=== PATIENT | female | born 1970 | race Caucasian/White ===

== ENCOUNTER 2017-11-16 16:15 | Inpatient (IN) ==
[2017-11-18 05:30] LABS: Basophils # 0.1 K/mcL (0.0-0.2); Basophils % 0.7 %; Eosinophils # 0.1 K/mcL (0.0-0.6); Eosinophils % 1.7 %; Hematocrit 40.6 % (35.3-44.9); Hemoglobin 13.8 g/dL (11.5-15.4); Immature Granulocytes % 0.1 % (0-4); Lymphocytes # 2.4 K/mcL (0.6-4.6); Lymphocytes % 28.9 %; Mean Corpuscular Hemoglobin 29.1 pg (28.0-33.3); Mean Corpuscular Volume 85.7 fL (83.0-100.0); Mean Platelet Volume 11.2 fL (9.4-12.4); Monocytes # 0.5 K/mcL (0.0-1.3); Monocytes % 6.3 %; Neutrophils # 5.1 K/mcL (1.6-8.9); Platelet Count 254 K/mcL (140-400); Red Blood Count 4.74 M/mcL (3.82-4.97); Red Cell Distribution Width 12.2 % (11.5-14.5); Segmented Neutrophils % 62.3 %
[2017-11-18 05:31] LABS: Prothrombin Time 11.8 Seconds (9.4-12.1)
[2017-11-18 05:34] LABS: Activated Partial Thrombo Time 32.4 Seconds (26.0-36.0)
[2017-11-18 05:42] LABS: BUN/Creatinine Ratio 21 (6-26); Blood Urea Nitrogen 19 mg/dL (6-20); Calcium 9.4 mg/dL (8.6-10.3); Carbon Dioxide 25 mEq/L (23-29); Chloride 103 mEq/L (98-107); Glucose 115 mg/dL (70-105); Osmolality,Calculated 283 (280-300); Potassium 3.9 mEq/L (3.5-5.1); Sodium 135 mEq/L (136-145); eGFR For Non-African Americans > 60 (> 60)
[2017-11-18] MEDS: *HR* Enoxaparin 40 MG/0.4 ML SYRINGE SQ SCH (05:46)
[2017-11-18] MEDS: Aspirin 325 MG TABLET PO SCH (08:16)
--- NOTE | 2017-11-18 14:24 | Internal Med History&Physical ---
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 - discharged from [facility] on 11/17/17 to acute rehabilitation - residual right sided wkness reported but examination showed adequate strength - PT/OT/ST to evaluate pt and set goals to assess ADL/and improve them as they come - Pt on disability for bipolar and right knee; reported per pt - counseled against smoking given history of >20years; pt reports that she doesn 't have any smoking urges - Continue ASA and lipitor as well - PRN stool softner okay to continue - ?limitation would be her mood, and currently appear to be stable - no pain reported - Pt appear to be a poor compliant with medical follow up and her medications - hasn't been on her psych meds since being in hospital; reproting that family will bring them - called pharmacy and they reported that she is on Trazadone, wellbutrin and lamotrigine Qualifiers: CVA mechanism: embolism Precerebral and cerebral artery: other precerebral artery Qualified Code(s): I63.19 - Cerebral infarction due to embolism of other precerebral artery (2) Right sided weakness Current visit: No Status: Acute (3) Numbness on right side Current visit: No Status: Acute (4) Facial droop Current visit: No Status: Acute (5) Bipolar depression Current visit: Yes Status: Acute - poor compliance with meds; had multiple psych admissions in the past for SI w/ o attempt - currently stable mood; no halluciantions nor paranoia as well - restarting home psych medications: wellbutrin 100mg BID/ trazadone at 50mg PRN for insomnia - we will investigate when she last took lamictal before we start at half the dose for couple of days before she goes back to 150BID (6) Tobacco abuse Current visit: Yes Status: Acute - pt last cig was ?11/13 - no tobacco replacement therapy at this time - pt was counselled today - family and friends might still offer her as she was noticed to go outside - no limitation on going outside was imposed on her given hs of mood disorder of depression and bipolar (7) Urinary incontinence Current visit: Yes Status: Acute - ditropan was continued, will continue to monitor for constipation - stool softners PRN continued Qualifiers: Urinary Incontinence type: urge incontinence Qualified Code(s): N39.41 - Urge incontinence (8) Insomnia Current visit: Yes Status: Acute - trazadone 50mg PRN for insomnia placed Qualifiers: Insomnia type: other insomnia Qualified Code(s): G47.09 - Other insomnia (9) GERD (gastroesophageal reflux disease) Current visit: Yes Status: Acute - omeprazole at 20mg was given to pt - will continue to monitor Qualifiers: Esophagitis presence: esophagitis presence not specified Qualified Code(s) : K21.9 - Gastro-esophageal reflux disease without esophagitis Internal Medicine - H&P: HPI Chief complaint: Left CVA History of present illness: Ms. Figueroa is a 47 year old female with pmh of Bipolar depression with prior psych admission for SI w/o attempt per pt, 20 pack history of smoking, ?urinary urgency w/ incontinence on ditropan, who incurred left putamen infarct, posterior potamen per MRI of the brain w/o hemorrhage on 11/14. No reports of tPA due to being evaluated outside the window. Currently suffering from right sided hemiplagia per records and that what she endorsed to me today. Today she deined any new symptoms and feels fatigue s/p PT. She reports that she is tobacco free since her CVA on 11/14. She doesn't remember her medications for her bipolar. Doesn't see psych, and f/u with Dr. Martha Rodriguez that fills her psych meds. Her bipolar has been stable, and last psych admission has been years ago, she doesn't remember when but was for SI w/o attempt for at least 3 days duration. She reported that she is on three psych meds, that doesn't appear to be taken for the past days since admission. It was also noted that she had a diagnosis of psoriasis but doesn't appear to be taking her Humira wkly injection. Overall, denied any CP/SOB/ GI or issues. Reported that mood is stable w/o any hallucinations nor paranoia reported. She reported intact appetite and sleep at this time. She is expressing desire to be home. Past Med Surg Social Fam HX - Past Medical History Source: patient, old records reviewed (Psoriasis, Uriary incontinence, hx of tobacco abuse of 20 pack years and bipolar depression) Medical history: CVA, GERD, hyperlipidemia, other Additional medical history: Ovarian cyst Psychiatric history: bipolar, depression - Past Surgical History Surgical History: cholecystectomy Additional surgical history: carpal tunnel sx, Right knee replacement - Social History Smoking Status: Current every day smoker (last tobacco use 11/13) Smokeless Tobacco Status: No Alcohol use: none Drug use: none Internal Medicine - H&P: Meds Omeprazole [PriLOSEC] 20 mg PO BIDAC 11/17/17 [History] Oxybutynin [Ditropan] 10 mg PO DAILY 11/17/17 [History] Adalimumab [Humira] 40 mg SQ Q7D 11/18/17 [History] BuPROPion [Wellbutrin] 100 mg PO BID 11/18/17 [History] lamoTRIgine [Lamotrigine] 150 mg PO BID 11/18/17 [History] traZODone [TraZODone] 50 mg PO HS 11/18/17 [History] 3 Allergy/AdvReac Type Severity Reaction Status Date / Time tetrahydrozoline AdvReac Swelling Verified 11/02/17 14:02 [From [facility]] of the [facility] Systems PM: A 10-system review of systems was performed and is negative for pertinent findings except as documented above in the HPI. - Constitutional Vitals: Temp Pulse Resp BP Pulse Ox 97.8 F 73 16 107/74 98 11/18/17 11:32 11/18/17 11:32 11/18/17 11:32 11/18/17 11:32 11/18/17 11:32 - Head Head exam: Present: atraumatic, normocephalic - Eye Eye exam: Present: PERRL, conjuntiva pink, sclera anicteric Pupils: Present: PERRL Additional comments: Right lazy eye - Neck Neck exam general surgery: Present: supple, trachea midline. Absent: lymphadenopathy - Respiratory Respiratory exam: Present: CTAB. Absent: accessory muscle use, rales, rhonchi, wheezes - Cardiovascular Cardiovascular exam: Present: RRR, +S1, +S2. Absent: diastolic murmur, gallop, rubs, systolic murmur - GI/Abdominal GI/Abdominal exam: Present: normal bowel sounds, soft, no peritoneal signs. Absent: distended, tenderness - Extremities Exam Extremities exam: Present: warm, radial pulses palpable and symmetrical. Absent : calf tenderness, cyanotic, pedal edema Additional comments: Upper extremity strength at 5/5 Lower extremity srength at 5/5 Gait normal with walker able to stand up - Neurological Exam Neurological exam: Present: CN II-XII intact, oriented X3, no focal deficits. Absent: pronater drift, facial droop, speech deficit - Psychiatric Psychiatric exam: Present: normal affect, normal mood. Absent: agitated, anxious, depressed, flat affect, manic, suicidal ideation - Skin Skin exam: Present: dry, intact Internal Med - H&P Results - Labs CBC & Chem 7: 11/18/17 05:15 11/18/17 05:15 Labs: Short CBC 11/18/17 Range/Units 05:15 WBC 8.3 (4.3-11.1) K/mcL Hgb 13.8 (11.5-15.4) g/dL Hct 40.6 (35.3-44.9) % Plt Count 254 (140-400) K/mcL Neutrophils # 5.1 (1.6-8.9) K/mcL BMP 11/18/17 05:15 Sodium 135 L Potassium 3.9 Chloride 103 Carbon Dioxide 25 BUN 19 Creatinine 0.91 Glucose 115 H Calcium 9.4
[2017-11-18] MEDS: traZODone 50 MG TABLET PO PRN (21:21)
[2017-11-19] MEDS: *HR* Enoxaparin 40 MG/0.4 ML SYRINGE SQ SCH (05:46)
[2017-11-19] MEDS: Aspirin 325 MG TABLET PO SCH (08:14)
--- NOTE | 2017-11-19 12:03 | Internal Med Progress Note ---
Date of Encounter: 11/19/17 Time of Encounter: 12:00 - Assessment and plan (1) CVA (cerebral vascular accident) Current Visit: No Status: Acute Assessment and plan: - history of stroke on the left posterior Putamen - discharged from [facility] on 11/17/17 to acute rehabilitation in [place] - residual right sided wkness reported but examination showed adequate strength - PT/OT/ST to evaluate pt and set goals to assess ADL/and improve them as they come - Pt on disability for bipolar and right knee; reported per pt - counseled against smoking given history of >20years; pt reports that she doesn 't have any smoking urges - Continue ASA and lipitor as well - Continue PRN stool softner - ?limitation would be her mood, and currently appear to be stable - no pain reported still - Pt appear to be a poor compliant with medical follow up and her medications - hasn't been on her psych meds since being in the [facility]; We investigated by phone and she brought them as well - called pharmacy and they reported that she is on Trazadone, wellbutrin and lamotrigine - She doesn't report being on lamotrigine; we only started trazadone and wellbutrin Qualifiers: CVA mechanism: embolism Precerebral and cerebral artery: other precerebral artery Qualified Code(s): I63.19 - Cerebral infarction due to embolism of other precerebral artery (2) Right sided weakness Current Visit: No Status: Acute (3) Numbness on right side Current Visit: No Status: Acute (4) Facial droop Current Visit: No Status: Acute (5) Bipolar depression Current Visit: Yes Status: Acute Assessment and plan: - poor compliance with meds; had multiple psych admissions in the past for SI w/ o attempt - currently stable mood; no halluciantions nor paranoia - continue home psych medications: wellbutrin 100mg BID/ trazadone at 50mg PRN for insomnia - Doesn't appear been on lamictal at this time; we will defer to her psych/FM physician (6) Tobacco abuse Current Visit: Yes Status: Acute Assessment and plan: - pt last cig was ?11/13 - no nicotine replacement therapy at this time - family and friends might still offer her as she was noticed to go outside - no limitation on going outside was imposed on her given hx of mood disorder bipolar depression (7) Urinary incontinence Current Visit: Yes Status: Acute Assessment and plan: -Continue ditropan -continue to monitor for constipation as a side effect Qualifiers: Urinary Incontinence type: urge incontinence Qualified Code(s): N39.41 - Urge incontinence (8) Insomnia Current Visit: Yes Status: Acute Assessment and plan: -Continue trazadone PRN as above Qualifiers: Insomnia type: other insomnia Qualified Code(s): G47.09 - Other insomnia (9) GERD (gastroesophageal reflux disease) Current Visit: Yes Status: Acute Assessment and plan: -continue Omeprazole 20mg Qualifiers: Esophagitis presence: esophagitis presence not specified Qualified Code(s) : K21.9 - Gastro-esophageal reflux disease without esophagitis - Time Spent With Patient less than 15 minutes - Subjective Interval history: pt seen in the dinning area eating lunch, expressed desire to home Denied: insomnia, CP/SOB, Gi or as well stable mood - Constitutional Vitals: Temp Pulse Resp BP Pulse Ox 98.1 F 82 16 119/75 95 11/19/17 07:55 11/19/17 07:55 11/19/17 07:55 11/19/17 07:55 11/19/17 07:55 - Head Head exam: Present: atraumatic, normocephalic - Eye Eye exam: Present: PERRL, conjuntiva pink, sclera anicteric Pupils: Present: PERRL - Neck Neck exam general surgery: Present: supple, trachea midline. Absent: lymphadenopathy - Respiratory Respiratory exam: Present: CTAB. Absent: accessory muscle use, rales, rhonchi, wheezes - Cardiovascular Cardiovascular exam: Present: RRR, +S1, +S2. Absent: diastolic murmur, gallop, rubs, systolic murmur - GI/Abdominal GI/Abdominal exam: Present: normal bowel sounds, soft, no peritoneal signs. Absent: distended, tenderness - Extremities Exam Extremities exam: Present: warm, radial pulses palpable and symmetrical. Absent : calf tenderness, cyanotic, pedal edema - Neurological Exam Neurological exam: Present: CN II-XII intact, oriented X3, no focal deficits. Absent: pronater drift, facial droop, speech deficit - Skin Skin exam: Present: dry, intact Internal Medicine: Result - Labs CBC & Chem 7: 11/18/17 05:15 11/18/17 05:15 - ABG Interpretation ABG results: PT/INR, D-dimer PT 11.8 Seconds (9.4-12.1) 11/18/17 05:15 Consult Discharge Plan - Plan Referrals: Martha He, PHARMACY SALES REPRESENTATIVE [Primary Care Provider] -
[2017-11-19] MEDS: traZODone 50 MG TABLET PO PRN (21:40)
[2017-11-20] MEDS: *HR* Enoxaparin 40 MG/0.4 ML SYRINGE SQ SCH (05:46)
[2017-11-20 05:52] LABS: Eosinophils % 1.7 %; Hematocrit 39.4 % (35.3-44.9); Hemoglobin 13.3 g/dL (11.5-15.4); Immature Granulocytes % 0.3 % (0-4); Lymphocytes # 2.3 K/mcL (0.6-4.6); Lymphocytes % 25.8 %; Mean Corpuscular HGB Conc 33.8 g/dL (31.6-35.5); Mean Platelet Volume 11.5 fL (9.4-12.4); Monocytes % 6.5 %; Neutrophils # 5.9 K/mcL (1.6-8.9); Platelet Count 232 K/mcL (140-400); Red Blood Count 4.58 M/mcL (3.82-4.97); Red Cell Distribution Width 12.3 % (11.5-14.5); Segmented Neutrophils % 64.7 %
[2017-11-20 05:53] LABS: Basophils # 0.1 K/mcL (0.0-0.2); Eosinophils # 0.2 K/mcL (0.0-0.6); Monocytes # 0.6 K/mcL (0.0-1.3)
[2017-11-20 05:57] LABS: INR 1.1; Prothrombin Time 12.1 Seconds (9.4-12.1)
[2017-11-20 06:00] LABS: Activated Partial Thrombo Time 30.9 Seconds (26.0-36.0)
[2017-11-20 06:11] LABS: BUN/Creatinine Ratio 20 (6-26); Blood Urea Nitrogen 19 mg/dL (6-20); Calcium 9.6 mg/dL (8.6-10.3); Carbon Dioxide 24 mEq/L (23-29); Chloride 105 mEq/L (98-107); Glucose 117 mg/dL (70-105); Osmolality,Calculated 283 (280-300); Sodium 135 mEq/L (136-145); eGFR For Non-African Americans > 60 (> 60)
[2017-11-20] MEDS: Aspirin 325 MG TABLET PO SCH (08:08)
--- NOTE | 2017-11-20 13:20 | Internal Med Progress Note ---
Date of Encounter: 11/20/17 Time of Encounter: 12:54 - Assessment and plan (1) CVA (cerebral vascular accident) Current Visit: Yes Status: Acute Assessment and plan: No acute neuro deficits noted on exam. Continued slight right hemiparesis. Poor balance and remains a fall risk. Progressing well with PT/OT. VS stable. Patient with wishes to be DC'd to home and attend outpatient PT/OT. Patent with history of poor compliance with medical f/u and at times her medications. Poor physical support at home with the patient remaining a fall risk. Patient informed that the plan is to have her stay at least one more week (or longer). Will continue on current meds. Most recent Lipid panel from [facility] shows LDL 120. 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 No behavior issues reported and currently interacting well with staff. Continue on home meds. (3) Urinary incontinence Current Visit: Yes Status: Acute Assessment and plan: No current reported issues. Continue on current meds. Qualifiers: Urinary Incontinence type: urge incontinence Qualified Code(s): N39.41 - Urge incontinence (4) GERD (gastroesophageal reflux disease) Current Visit: Yes Status: Chronic Assessment and plan: Denies any issues. Continue on current meds. Qualifiers: Esophagitis presence: esophagitis presence not specified Qualified Code(s) : K21.9 - Gastro-esophageal reflux disease without esophagitis - Time Spent With Patient less than 15 minutes - Subjective Interval history: Patient appears relaxed and denies any current discomforts or dyspnea. Patient denies any recent acute neurological changes. Feels that her strength has improved. Patient has been stating her wishes to be discharged to home and do therapy as outpatient. Concerns about her compliance with care and therapy were expressed. Also, concerns about her mother, whom she lives with, being able to physically assist were discussed. Mother has had a recent CABG. - Constitutional Vitals: Temp Pulse Resp BP Pulse Ox 97.9 F 106 16 111/72 97 11/20/17 07:48 11/20/17 07:48 11/20/17 07:48 11/20/17 07:48 11/20/17 07:48 General appearance: Present: A&O X 3, pleasant - Head Head exam: Present: atraumatic, normocephalic - Eye Eye exam: Present: PERRL, conjuntiva pink, sclera anicteric Pupils: Present: PERRL Additional comments: PERRLA. Dysconjugate - Neck Neck exam general surgery: Present: supple, trachea midline. Absent: lymphadenopathy - Respiratory Respiratory exam: Present: CTAB. Absent: accessory muscle use, rales, rhonchi, wheezes - Cardiovascular Cardiovascular exam: Present: RRR, +S1, +S2. Absent: diastolic murmur, gallop, rubs, systolic murmur - GI/Abdominal GI/Abdominal exam: Present: normal bowel sounds, soft, no peritoneal signs. Absent: distended, tenderness - Extremities Exam Extremities exam: Present: warm, radial pulses palpable and symmetrical. Absent : calf tenderness, cyanotic, pedal edema - Neurological Exam Neurological exam: Present: CN II-XII intact, oriented X3. Absent: pronater drift, facial droop, speech deficit Additional comments: dysconjugate with eyes. Slight right hemiparesis with RE 4/5 and LE 5/5 on ext/ flex for prox/distal. Noted slight drag of right foot. Poor balance. - Skin Skin exam: Present: dry, intact Internal Medicine: Result - Labs CBC & Chem 7: 11/20/17 05:40 11/20/17 05:40 Labs: Short CBC 11/20/17 Range/Units 05:40 WBC 9.0 (4.3-11.1) K/mcL Hgb 13.3 (11.5-15.4) g/dL Hct 39.4 (35.3-44.9) % Plt Count 232 (140-400) K/mcL Neutrophils # 5.9 (1.6-8.9) K/mcL BMP 11/20/17 05:40 Sodium 135 L Potassium 4.0 Chloride 105 Carbon Dioxide 24 BUN 19 Creatinine 0.95 Glucose 117 H Calcium 9.6 - ABG Interpretation ABG results: PT/INR, D-dimer PT 12.1 Seconds (9.4-12.1) 11/20/17 05:40 Consult Discharge Plan - Plan Referrals: Martha He CNP [Primary Care Provider] -
--- NOTE | 2017-11-20 19:33 | Physcial Medicine-Consult Note ---
Date of Encounter: 11/20/17 Time of Encounter: 19:05 Physical Medicine - AP (1) CVA (cerebral vascular accident) Status: Acute Assessment and plan: Some of her RLE weakness is from previous right knee trauma and surgery. She has poor control of her right side, dysarthria, and dysphagia, which is amenable to therapy. She has some impulsiveness and poor pacing which makes her unsafe. Continue Rehab. PT, OT, & Speech. If she continues to catch her toe with walking, she may need AFO Need [facility] to look in her mouth and also consider stopping Lovenox. Code(s): I63.9 - Cerebral infarction, unspecified SNOMED Code(s): 081217946 Physical Medicine - HPI - Data of Consult Requesting Physician: Chris Rodarte MD Primary Care Provider: Martha He CNP - Consult Narrative History of present illness: Ms. Figueroa is a 47 year old female CC: Chris Rodarte MD [id number] admitted to Rehab with left CVA, right hemiparesis, dysarthria. She has good sensation and strength on the right side, but poor control. She admits to mild difficulty swallowing. Denies pain or bowel/bladder dysfunction. She has right exotropia since childhood and denies alteration of vision.Her goal for rehab is to become independent with walking and self care. Past Med Surg Social Fam HX - Past Medical History Medical history: CVA, GERD, hyperlipidemia, other Additional medical history: Ovarian cyst Psychiatric history: bipolar, depression - Past Surgical History Surgical History: cholecystectomy, knee replacement Additional surgical history: carpal tunnel sx, Right knee replacement - Social History Smoking Status: Current every day smoker (last tobacco use 11/13) Smokeless Tobacco Status: No Alcohol use: none Drug use: none Medications and Allergies Omeprazole [PriLOSEC] 20 mg PO BIDAC 11/17/17 [History] Oxybutynin [Ditropan] 10 mg PO DAILY 11/17/17 [History] Adalimumab [Humira] 40 mg SQ Q7D 11/18/17 [History] BuPROPion [Wellbutrin] 100 mg PO BID 11/18/17 [History] lamoTRIgine [Lamotrigine] 150 mg PO BID 11/18/17 [History] traZODone [TraZODone] 50 mg PO HS 11/18/17 [History] 3 Allergy/AdvReac Type Severity Reaction Status Date / Time tetrahydrozoline AdvReac Swelling Verified 11/02/17 14:02 [From [facility]] of the Eye All systems: reviewed and no additional remarkable complaints except as stated ( Right knee and leg weakness from previous trauma.) Physical Medicine - Exam - Constitutional Vitals: Temp Pulse Resp BP Pulse Ox 98.1 F 81 17 111/54 99 11/20/17 18:36 11/20/17 18:36 11/20/17 18:36 11/20/17 18:36 11/20/17 18:36 General appearance: average body habitus, cooperative, no acute distress - Head Head exam: Present: atraumatic, normocephalic - Eye Additional comments: Right exotropia - ENT ENT exam: Present: mucous membranes moist Additional comments: Right facial droop. Tongue protrudes to the right. Right side of tongue and right posterior oral mucosa is coated with white deposit. No erythema. - Neck Neck exam: Present: full ROM. Absent: thyromegaly - Respiratory Respiratory exam: Present: CTAB - Cardiovascular Cardiovascular exam: Present: RRR - GI/Abdominal GI/Abdominal exam: Present: normal bowel sounds, soft - Extremities Exam Extremities exam: Present: full ROM - Neurological Exam Neurological exam: Present: abnormal gait, alert, oriented X3, strengths equal and symetr throughout, pronater drift, facial droop, speech deficit. Absent: CN II-XII intact Additional comments: Dysarthria, right pronator drift, right galvan's sign, Right UE and LE DTRs 3+ . Left 2+. Sensation intact. Gross incoordination. - Psychiatric Psychiatric exam: Present: normal affect, normal mood - Skin Skin exam: Present: intact Physical Medicine - Results - Labs CBC & Chem 7: 11/20/17 05:40 11/20/17 05:40 Labs: Short CBC 11/20/17 Range/Units 05:40 WBC 9.0 (4.3-11.1) K/mcL Hgb 13.3 (11.5-15.4) g/dL Hct 39.4 (35.3-44.9) % Plt Count 232 (140-400) K/mcL Neutrophils # 5.9 (1.6-8.9) K/mcL BMP 11/20/17 05:40 Sodium 135 L Potassium 4.0 Chloride 105 Carbon Dioxide 24 BUN 19 Creatinine 0.95 Glucose 117 H Calcium 9.6 Hyponatremia, Hyperglycemia. Consult Discharge Plan - Plan Referrals: Martha He CNP [Primary Care Provider] -
[2017-11-20] MEDS: traZODone 50 MG TABLET PO PRN (20:41)
[2017-11-21 05:42] LABS: Hematocrit 38.5 % (35.3-44.9); Hemoglobin 13.1 g/dL (11.5-15.4); Mean Corpuscular Hemoglobin 29.2 pg (28.0-33.3); Mean Corpuscular Volume 85.7 fL (83.0-100.0); Mean Platelet Volume 11.5 fL (9.4-12.4); Platelet Count 225 K/mcL (140-400); Red Blood Count 4.49 M/mcL (3.82-4.97); Red Cell Distribution Width 12.2 % (11.5-14.5)
[2017-11-21 05:57] LABS: Alanine Aminotransferase 42 Units/L (7-52); Albumin 3.9 g/dL (3.5-5.7); Albumin/Globulin Ratio 1.1 (1.1-2.2); Alkaline Phosphatase 62 Units/L (34-104); Aspartate Amino Transferase 27 Units/L (13-39); BUN/Creatinine Ratio 21 (6-26); Bilirubin,Total 0.6 mg/dL (0.3-1.0); Blood Urea Nitrogen 19 mg/dL (6-20); Calcium 9.5 mg/dL (8.6-10.3); Carbon Dioxide 23 mEq/L (23-29); Chloride 104 mEq/L (98-107); Chol/HDL Ratio 4.9 (0-4.9); Cholesterol 113 mg/dL (< 200); Globulin 3.5 g/dL (2.4-3.5); Glucose 114 mg/dL (70-105); HDL Cholesterol 23 mg/dL (40-59); LDL Cholesterol,Calculated 69 mg/dL (0-99); Magnesium 1.8 mg/dL (1.6-2.6); Osmolality,Calculated 281 (280-300); Potassium 3.9 mEq/L (3.5-5.1); Sodium 134 mEq/L (136-145); Total Protein 7.4 g/dL (6.4-8.9); Triglycerides 104 mg/dL (< 150); eGFR For Non-African Americans > 60 (> 60)
[2017-11-21 08:47] LABS: Estimated Average Glucose 134 mg/dl; Hemoglobin A1C 6.3 %
--- NOTE | 2017-11-21 09:28 | Internal Med Progress Note ---
Date of Encounter: 11/21/17 Time of Encounter: 09:24 - Assessment and plan (1) CVA (cerebral vascular accident) Current Visit: Yes Status: Acute Assessment and plan: No acute issues. Patient's neurological exam remains unchanged with no acute deficits noted. Patient continues with slight right hemiparesis. Patient continues to regain strength to right side and has progressed well with physical therapy. Plan is to continue patient with physical therapy for at least 1 week or more. Patient has questionable support at home if she was to be discharged for outpatient therapy. 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 No behavior issues reported and currently interacting well with staff. Continue on home meds. (3) Urinary incontinence Current Visit: Yes Status: Acute Assessment and plan: No current reported issues. Continue on current meds. Qualifiers: Urinary Incontinence type: urge incontinence Qualified Code(s): N39.41 - Urge incontinence (4) GERD (gastroesophageal reflux disease) Current Visit: Yes Status: Chronic Assessment and plan: Denies any issues. Continue on current meds. Qualifiers: Esophagitis presence: esophagitis presence not specified Qualified Code(s) : K21.9 - Gastro-esophageal reflux disease without esophagitis - Time Spent With Patient less than 15 minutes - Subjective Interval history: Patient appears relaxed and denies any current discomforts or dyspnea. Patient denies any recent acute neurological changes. Feels that her strength has improved. States that therapy has been going well. Denies any cravings for cigarettes or Mt. Dew. Patient has been stating her wishes to be discharged to home and do therapy as outpatient, but today she has not mentioned any desires to DC. Concerns about her compliance with care and therapy were expressed. Also, concerns about her mother, whom she lives with, being able to physically assist were discussed. Mother has had a recent CABG. - Constitutional Vitals: Temp Pulse Resp BP Pulse Ox 98.1 F 64 21 100/68 95 11/21/17 07:22 11/21/17 07:22 11/21/17 07:22 11/21/17 07:22 11/21/17 07:22 General appearance: Present: A&O X 3, pleasant - Head Head exam: Present: atraumatic, normocephalic - Eye Eye exam: Present: PERRL, conjuntiva pink, sclera anicteric Pupils: Present: PERRL - Neck Neck exam general surgery: Present: supple, trachea midline. Absent: lymphadenopathy - Respiratory Respiratory exam: Present: CTAB. Absent: accessory muscle use, rales, rhonchi, wheezes - Cardiovascular Cardiovascular exam: Present: RRR, +S1, +S2. Absent: diastolic murmur, gallop, rubs, systolic murmur - GI/Abdominal GI/Abdominal exam: Present: normal bowel sounds, soft, no peritoneal signs. Absent: distended, tenderness - Extremities Exam Extremities exam: Present: warm, radial pulses palpable and symmetrical. Absent : calf tenderness, cyanotic, pedal edema - Neurological Exam Neurological exam: Present: CN II-XII intact, oriented X3. Absent: pronater drift, facial droop, speech deficit Additional comments: Dysconjugate gaze, but her baseline prior to CVA. Slight right hemiparesis with RE 4/5 and LE 5/5 for flex/ext at prox/distal. Patient observed ambulating without assist. - Skin Skin exam: Present: dry, intact Internal Medicine: Result - Labs CBC & Chem 7: 11/21/17 05:35 11/21/17 05:35 Labs: Short CBC 11/21/17 Range/Units 05:35 WBC 8.4 (4.3-11.1) K/mcL Hgb 13.1 (11.5-15.4) g/dL Hct 38.5 (35.3-44.9) % Plt Count 225 (140-400) K/mcL BMP 11/21/17 05:35 Sodium 134 L Potassium 3.9 Chloride 104 Carbon Dioxide 23 BUN 19 Creatinine 0.90 Glucose 114 H Calcium 9.5 Liver Function 11/21/17 Range/Units 05:35 Total Bilirubin 0.6 (0.3-1.0) mg/dL AST 27 (13-39) Units/L ALT 42 (7-52) Units/L Alkaline Phosphatase 62 (34-104) Units/L Albumin 3.9 (3.5-5.7) g/dL - ABG Interpretation ABG results: PT/INR, D-dimer PT 12.1 Seconds (9.4-12.1) 11/20/17 05:40 Consult Discharge Plan - Plan Referrals: Martha He CNP [Primary Care Provider] -
[2017-11-21] MEDS: Aspirin 325 MG TABLET PO SCH (09:37)
[2017-11-21] MEDS: traZODone 50 MG TABLET PO PRN (19:51)
[2017-11-22] MEDS: Aspirin 325 MG TABLET PO SCH (08:23)
--- NOTE | 2017-11-22 13:15 | Internal Med Progress Note ---
Date of Encounter: 11/22/17 Time of Encounter: 13:13 - Assessment and plan (1) CVA (cerebral vascular accident) Current Visit: Yes Status: Acute Assessment and plan: Continue PT and OT. Follow up with neuro as scheduled. Qualifiers: CVA mechanism: unspecified Qualified Code(s): I63.9 - Cerebral infarction, unspecified (2) Bipolar depression Current Visit: Yes Status: Chronic Assessment and plan: Stable. Continue current medication. (3) GERD (gastroesophageal reflux disease) Current Visit: Yes Status: Chronic Assessment and plan: Controlled with current medication. Qualifiers: Esophagitis presence: esophagitis presence not specified Qualified Code(s) : K21.9 - Gastro-esophageal reflux disease without esophagitis - Time Spent With Patient less than 15 minutes - Subjective Interval history: Participating well with therapy. Continues to have occasional right to catch. Ambulating with Walker in hallway. Will make mod independent on unit. Planning to discharge home tomorrow. Lives with mother. Denies any new issues at this time. - Constitutional Vitals: Temp Pulse Resp BP Pulse Ox 98.4 F 91 16 109/73 96 11/22/17 07:33 11/22/17 07:33 11/21/17 19:41 11/22/17 07:33 11/22/17 07:33 General appearance: Present: cooperative, A&O X 3, pleasant, no acute distress, answers questions appropriately - Head Head exam: Present: atraumatic, normocephalic - Eye Eye exam: Present: PERRL, conjuntiva pink, sclera anicteric Pupils: Present: PERRL - Neck Neck exam general surgery: Present: supple, trachea midline. Absent: lymphadenopathy - Respiratory Respiratory exam: Present: CTAB. Absent: accessory muscle use, rales, rhonchi, wheezes - Cardiovascular Cardiovascular exam: Present: RRR, +S1, +S2. Absent: diastolic murmur, gallop, rubs, systolic murmur - GI/Abdominal GI/Abdominal exam: Present: normal bowel sounds, soft, no peritoneal signs. Absent: distended, tenderness - Extremities Exam Extremities exam: Present: warm, radial pulses palpable and symmetrical. Absent : calf tenderness, cyanotic, pedal edema - Neurological Exam Neurological exam: Present: CN II-XII intact, oriented X3, no focal deficits. Absent: pronater drift, facial droop, speech deficit - Skin Skin exam: Present: dry, intact Internal Medicine: Result - Labs CBC & Chem 7: 11/21/17 05:35 11/21/17 05:35 - ABG Interpretation ABG results: PT/INR, D-dimer PT 12.1 Seconds (9.4-12.1) 11/20/17 05:40 Consult Discharge Plan - Plan Referrals: Martha He STRATEGIC ACCOUNT EXECUTIVE [Primary Care Provider] -
[2017-11-22] MEDS: traZODone 50 MG TABLET PO PRN (19:56)
[2017-11-23] MEDS: Aspirin 325 MG TABLET PO SCH (07:47)
[2017-11-23 07:55] VITALS: BP 101/68
--- NOTE | 2017-11-23 10:37 | Discharge Summary ---
Orders not resulted at time of discharge: Pending orders 11/27/17 04:00 Activated Partial Thrombo Time [COAG] MO Basic Metabolic Panel MO Complete Blood Count [HEME] MO Prothrombin Time INR [COAG] MO Date of Encounter: 11/23/17 Time of Encounter: 10:35 - Discharge Diagnosis (1) CVA (cerebral vascular accident) Priority: Primary Status: Inactive Comments: Patient with admitting diagnosis of left CVA with slight right hemiparesis. No acute neurological deficits were noted during her stay of facility. He participated in physical therapy and progressed well. Patient to follow-up with neurology and PCP and will continue with therapy as an outpatient. 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 No behavior issues were related by nursing. Patient is interacting well with staff during her admission. We will continue with home medications after discharge and follow-up with primary care. (3) Urinary incontinence Priority: Secondary Status: Acute Comments: Patient continues with slight urinary incontinence. We will continue on Ditropan after discharge and follow-up with primary care. Qualifiers: Urinary Incontinence type: urge incontinence Qualified Code(s): N39.41 - Urge incontinence (4) GERD (gastroesophageal reflux disease) Priority: Secondary Status: Chronic Comments: No related issues during her stay of facility. Patient will continue with home medications and follow-up with primary care Qualifiers: Esophagitis presence: esophagitis presence not specified Qualified Code(s) : K21.9 - Gastro-esophageal reflux disease without esophagitis Hospital course: Ms. Figueroa is a 47 year old female with pmh of Bipolar depression with prior psych admission for SI w/o attempt per pt, 20 pack history of smoking. States history of urinary urgency w/ incontinence on ditropan. Patient incurred left putamen infarct, posterior potamen per MRI of the brain w/o hemorrhage on 11/14. No reports of tPA due to being evaluated outside the window. Currently suffering from right sided hemiplagia with MS RE 4/5 and LE 5/5. Patient has progressed well with physical therapy and has been observed ambulating in hallway with wheeled walker. She has a history of tobacco abuse and reportedly smokes half pack a day, but reports that she is tobacco free since her CVA on 11/14. She was restarted on her medications for her bipolar. Doesn't see psych, and f/u with Dr. Martha Rodriguez that fills her psych meds. Her bipolar has been stable, and last psych admission has been years ago, she doesn' t remember when but was for SI w/o attempt for at least 3 days duration. She reported that she is on three psych meds, that doesn't appear to be taken for the past days since admission. Patient will continue with physical therapy as an outpatient. Patient will be discharged to home with her mother. Discharge discussed with: patient Time spent discussing smoking cessation with patient: 3 to 10 minutes - Time Spent with Patient Total time spent providing and/or coordinating discharge services: Less than 30 minutes - Discharge Medications Home Medications: Omeprazole [PriLOSEC] 20 mg PO BIDAC 11/17/17 [History] Oxybutynin [Ditropan] 10 mg PO DAILY 11/17/17 [History] Adalimumab [Humira] 40 mg SQ Q7D 11/18/17 [History] BuPROPion [Wellbutrin] 100 mg PO BID 11/18/17 [History] lamoTRIgine [Lamotrigine] 150 mg PO BID 11/18/17 [History] traZODone [TraZODone] 50 mg PO HS 11/18/17 [History] Allergies/Adverse Reactions: 3 Allergy/AdvReac Type Severity Reaction Status Date / Time tetrahydrozoline AdvReac Swelling Verified 11/02/17 14:02 [From Visine] of the Eye Date of admission: 11/17/17 18:24 Primary care physician: Martha He CNP Consults: 11/17/17 19:04 Consult to Occupational Therapy [CONS] Routine Comment: Evaluate, develop and implement POC Reason for Consult: s/p CVA Does patient have active BEDREST order?: Yes Is patient medically & hemodynamically stable?: No Patient assessed for mobility or mobilized this visit?: No Consult to Physical Therapy [CONS] Routine Comment: Evaluate, develop and implement POC Reason for Consult: s/p CVA Does patient have active BEDREST order?: No Is patient medically & hemodynamically stable?: Yes Patient assessed for mobility or mobilized this visit?: Yes Consult to Recreational Therapy [CONS] Routine Comment: Evaluate, develop and implement POC Consult to Fastener Technologist [CONS] Routine Reason for SW Consult: s/p cva. potential for f/u care. Consult to Speech Therapy [CONS] Routine Comment: Evaluate, develop and implement POC Reason for Consult: s/p CVA Call Completed: Yes 11/17/17 19:14 Consult to Physical Medicine/Rehab [CONS] Routine Reason for Consult: s/p CVA Call Completed: Yes Discharging clinician: Chris Rodarte - Constitutional Vitals: Temp Pulse Resp BP Pulse Ox 98.0 F 85 18 101/68 97 11/23/17 07:00 11/23/17 07:00 11/23/17 07:00 11/23/17 07:00 11/23/17 07:00 General appearance: Present: cooperative, A&O X 3, pleasant, no acute distress, answers questions appropriately - Head Head exam: Present: atraumatic, normocephalic - Eye Eye exam: Present: PERRL, conjuntiva pink, sclera anicteric Pupils: Present: PERRL Additional comments: Disconjugate - Neck Neck exam general surgery: Present: supple, trachea midline. Absent: lymphadenopathy - Respiratory Respiratory exam: Present: CTAB. Absent: accessory muscle use, rales, rhonchi, wheezes - Cardiovascular Cardiovascular exam: Present: RRR, +S1, +S2. Absent: diastolic murmur, gallop, rubs, systolic murmur - GI/Abdominal GI/Abdominal exam: Present: normal bowel sounds, soft, no peritoneal signs. Absent: distended, tenderness - Extremities Exam Extremities exam: Present: warm, radial pulses palpable and symmetrical. Absent : calf tenderness, cyanotic, pedal edema - Neurological Exam Neurological exam: Present: CN II-XII intact, oriented X3. Absent: pronater drift, facial droop, speech deficit Additional comments: Patient with slight right hemiparesis with MS RE +4/5 and LE 5/5. Eyes remains dyconjugate, but that has been her baseline prior to her original admission. - Psychiatric Psychiatric exam: Present: normal affect - Skin Skin exam: Present: dry, intact - Patient Status Disposition: Home, Self-Care Condition: Good Functional capacity at discharge: uses cane/walker Overall status at discharge: patient is progressing back to baseline - Discharge Instructions Follow Up With: Martha He CNP [Primary Care Provider] - - Diet and Activity Activity: ambulate only with your walker, as per physical therapy Diet: diabetic diet
== END 2017-11-23 11:57 | disposition home or self-care (01) | DRG 57 ==
LOC: INPGRE 11-17 18:24